=== PATIENT | female | born 1950 | race Caucasian/White ===

== ENCOUNTER → 2017-02-01 | Outpatient (CLI) | payer MEDICARE, BC ==
[~2017-02-01] MED LIST: ADALAT CC30 MG PO; AMARYL 2MG T2 MG/TAB PO; ASPIRIN 81M81 MG/TA2 PO; B-12 500 MCG; DIOVAN 160MG160 MG PO; FERROUS SULFATE65 MG PO; GLEEVEC100 MG PO; OMEGA-31 SGL PO; ZOCOR 10MG10 MG PO; ZOCOR 20MG20 MG PO
== END ==
LOC: COL.RAD 11:17
PROVIDERS: Internal Medicine Nephrology
DX: D41.01 Neoplasm of uncertain behavior of right kidney (principal); N28.1 Cyst of kidney, acquired; N28.89 Other specified disorders of kidney and ureter
CPT/HCPCS: A9585

== ENCOUNTER → 2017-02-13 | Outpatient (CLI) | payer MEDICARE, BC | LOC: COL.RAD 10:54 | DX: N28.89 Other specified disorders of kidney and ureter (principal) | CPT/HCPCS: A9562 ==

== ENCOUNTER 2017-03-26 08:25 | Inpatient (IN) | payer MEDICARE, BC ==
[~2017-03-26] VITALS: Ht 167.6 cm; Wt 76.8 kg
[2017-03-27] VITALS (9 sets, daily range): BP systolic 90–194; BP diastolic 40–76; PULSE 51–75; TEMP 97.4–97.9
[2017-03-27] MEDS ORDERED: FERROUS SULFATE65 MG PO (06:20)
[2017-03-27] MEDS ORDERED: ZOCOR 10MG10 MG PO (06:20)
[2017-03-27] MEDS ORDERED: B-12 500 MCG (06:20)
[2017-03-27] MEDS ORDERED: AMARYL 2MG T2 MG/TAB PO (06:21)
[2017-03-27] MEDS ORDERED: GLEEVEC100 MG PO (06:21)
[2017-03-27] MEDS ORDERED: OMEGA-31 SGL PO (06:22)
[2017-03-27] MEDS ORDERED: DIOVAN 160MG160 MG PO (06:23)
[2017-03-27] MEDS ORDERED: ADALAT CC30 MG PO (06:23)
[2017-03-27] MEDS ORDERED: ASPIRIN 81M81 MG/TA2 PO (06:23)
[2017-03-27 13:26] LABS: BASO # 0.1 (0.0-0.2); BASO % 0.4 % (0.0-2.0); EOS % 0.2 % (0-4.0); GRAN # 10.7 (1.4-6.5); GRAN % 85.8 % (42.2-75.2); MEAN CELL VOLUME 98 fl (80.0-100.0); MEAN CORPUSCULAR HGB CONC 32 g/dl (33.0-37.0); MEAN PLATELET VOLUME 10.6 fl (7.4-10.4); MONO # 0.7 (0.1-0.6); MONO % 5.3 % (1.7-9.3); PLATELET COUNT 188 K/mm3 (130-400); RED BLOOD COUNT 3.31 M/mm3 (4.10-5.30); REDCELL DISTRIBUTION WIDTH-CV 14.7 % (11.5-14.5); WHITE BLOOD COUNT 12.4 K/mm3 (4.8-10.8)
[2017-03-27 13:27] LABS: HEMATOCRIT 32.3 % (37.0-47.0); HEMOGLOBIN 10.2 g/dl (12.5-16.0); MEAN CORPUSCULAR HEMOGLOBIN 31 pg (27.0-31.0)
[2017-03-27 13:55] LABS: CALCIUM 8.1 mg/dL (8.4-10.2); CREATININE, serum 1.44 mg/dL (0.52-1.25); POTASSIUM 4.8 mmol/L (3.4-5.0)
[2017-03-28 01:37] VITALS: BP 142/50; PULSE 65; TEMP 98
[2017-03-28] MEDS ORDERED: ZOCOR 20MG20 MG PO (05:54)
[2017-03-28 06:10] VITALS: BP 158/59; PULSE 75; TEMP 98.1
[2017-03-28 08:17] LABS: BASO % 0.3 % (0.0-2.0); EOS # 0.2 (0.0-0.7); EOS % 2.2 % (0-4.0); GRAN # 9.1 (1.4-6.5); GRAN % 84.9 % (42.2-75.2); LYMPH # 0.6 (1.2-3.4); LYMPH % 5.8 % (20.0-51.0); MEAN CELL VOLUME 95 fl (80.0-100.0); MEAN CORPUSCULAR HGB CONC 33 g/dl (33.0-37.0); MEAN PLATELET VOLUME 10.9 fl (7.4-10.4); MONO # 0.7 (0.1-0.6); MONO % 6.4 % (1.7-9.3); PLATELET COUNT 184 K/mm3 (130-400); RED BLOOD COUNT 3.47 M/mm3 (4.10-5.30); REDCELL DISTRIBUTION WIDTH-CV 14.6 % (11.5-14.5); WHITE BLOOD COUNT 10.7 K/mm3 (4.8-10.8)
[2017-03-28 08:24] LABS: HEMATOCRIT 33.1 % (37.0-47.0); HEMOGLOBIN 10.8 g/dl (12.5-16.0); MEAN CORPUSCULAR HEMOGLOBIN 31 pg (27.0-31.0)
[2017-03-28 08:45] LABS: CALCIUM 8.3 mg/dL (8.4-10.2); CREATININE, serum 1.31 mg/dL (0.52-1.25); POTASSIUM 4.3 mmol/L (3.4-5.0)
[2017-03-28 11:40] VITALS: BP 145/57; PULSE 74; TEMP 98.4
[2017-03-28 13:45] VITALS: BP 146/77; PULSE 76; TEMP 98.4
[2017-03-28 17:25] VITALS: BP 135/55; PULSE 76; TEMP 98.7
[2017-03-28 22:01] VITALS: BP 156/54; PULSE 80; TEMP 99.3
[2017-03-29 01:35] VITALS: BP 141/52; PULSE 76; TEMP 98.4
[2017-03-29 05:25] VITALS: BP 126/56; PULSE 72; TEMP 97.2
[2017-03-29 07:10] LABS: MEAN CELL VOLUME 95 fl (80.0-100.0); MEAN CORPUSCULAR HGB CONC 33 g/dl (33.0-37.0); MEAN PLATELET VOLUME 10.7 fl (7.4-10.4); PLATELET COUNT 161 K/mm3 (130-400); RED BLOOD COUNT 3.06 M/mm3 (4.10-5.30); REDCELL DISTRIBUTION WIDTH-CV 14.6 % (11.5-14.5); WHITE BLOOD COUNT 10.2 K/mm3 (4.8-10.8)
[2017-03-29 07:19] LABS: HEMOGLOBIN 9.6 g/dl (12.5-16.0); MEAN CORPUSCULAR HEMOGLOBIN 31 pg (27.0-31.0)
[2017-03-29 07:23] LABS: CALCIUM 8.4 mg/dL (8.4-10.2); CREATININE, serum 1.26 mg/dL (0.52-1.25); POTASSIUM 4.3 mmol/L (3.4-5.0)
[2017-03-29 10:06] VITALS: BP 144/59; PULSE 72; TEMP 98.1
[2017-03-29 13:58] VITALS: BP 131/53; PULSE 79; TEMP 98.2
[2017-03-29 17:26] VITALS: BP 153/58; PULSE 78; TEMP 98.2
[2017-03-29 22:00] VITALS: BP 146/56; PULSE 83; TEMP 98.3
[2017-03-30 02:00] VITALS: BP 120/59; PULSE 76; TEMP 98
[2017-03-30 05:20] VITALS: BP 125/58; PULSE 78; TEMP 98.1
[2017-03-30 09:13] VITALS: BP 142/51; PULSE 73; TEMP 98.1
[2017-03-30 14:16] VITALS: BP 126/54; PULSE 79; TEMP 99
[2017-03-30 17:23] VITALS: BP 129/55; PULSE 81; TEMP 98.6
[2017-03-30 22:01] VITALS: BP 132/60; PULSE 86; TEMP 97.9
[2017-03-31 01:56] VITALS: BP 132/51; PULSE 71; TEMP 97.4
[2017-03-31 06:23] VITALS: BP 116/51; PULSE 74; TEMP 97.4
[2017-03-31 09:57] VITALS: BP 123/48; PULSE 76; TEMP 98.7
[2017-03-31 14:30] VITALS: BP 132/47; PULSE 72; TEMP 98.2
[2017-03-31 17:47] VITALS: BP 120/52; PULSE 74; TEMP 98.2
[2017-03-31 22:16] VITALS: BP 128/51; PULSE 75; TEMP 97.8
[2017-04-01 01:41] VITALS: BP 114/54; PULSE 67; TEMP 97.4
[2017-04-01 05:47] VITALS: BP 114/50; PULSE 70; TEMP 97.6
[2017-04-01 10:30] VITALS: BP 119/46; PULSE 74; TEMP 97.9
== END 2017-04-01 13:54 | disposition home or self-care (01) | DRG 657 ==
LOC: COL.LAB 08:25 → INPTSU 03-27 06:00 → SURG 03-27 06:00
PROVIDERS: Urology
PROC: 8E0W4CZ Robotic Assisted Procedure of Trunk Region, Percutaneous Endoscopic Approach (ICD-10-PCS; 2017-03-27)
PROC: 0TB04ZZ Excision of Right Kidney, Percutaneous Endoscopic Approach (ICD-10-PCS; principal; 2017-03-27 07:30)
DX: C64.1 Malignant neoplasm of right kidney, except renal pelvis (principal); C92.10 Chronic myeloid leukemia, BCR/ABL-positive, not having achieved remission; K91.3 Postprocedural intestinal obstruction; Z85.038 Personal history of other malignant neoplasm of large intestine; Z85.42 Personal history of malignant neoplasm of other parts of uterus; I12.9 Hypertensive chronic kidney disease with stage 1 through stage 4 chronic kidney disease, or unspecified chronic kidney disease; E11.22 Type 2 diabetes mellitus with diabetic chronic kidney disease; N18.9 Chronic kidney disease, unspecified; Z93.3 Colostomy status
CPT/HCPCS: 99222; 99232-AI; A4315; A9284; J1644; J2270; J2405; J2704; J2710; J3010; J7030; J7042

== ENCOUNTER → 2017-03-27 | Outpatient (CLI) | payer MEDICARE, BC ==
[2017-03-27 11:10] VITALS: TEMP 97.2
[2017-03-27 11:35] VITALS: BP 95/50; PULSE 54
== END ==
LOC: SURG 05:45 → INPTSU 05:45 → EDSTATUS 07:30 → SURG 07:30 → EUO 09:00
DX: Z02.89 Encounter for other administrative examinations (principal)
CPT/HCPCS: A4315; J1170; J2270

== ENCOUNTER 2017-07-22 14:07 | Inpatient (IN) | payer MEDICARE, BC ==
[~2017-07-22] VITALS: Ht 167.6 cm; Wt 74.4 kg
[2017-07-22 14:38] VITALS: BP 160/56; PULSE 70; TEMP 98.1
[2017-07-22 17:53] LABS: BASO # 0.1 (0.0-0.2); BASO % 0.7 % (0.0-2.0); EOS # 0.2 (0.0-0.7); EOS % 1.8 % (0-4.0); GRAN # 7.7 (1.4-6.5); GRAN % 75.5 % (42.2-75.2); LYMPH # 1.6 (1.2-3.4); LYMPH % 15.6 % (20.0-51.0); MEAN CELL VOLUME 93 fl (80.0-100.0); MEAN CORPUSCULAR HGB CONC 34 g/dl (33.0-37.0); MEAN PLATELET VOLUME 10.6 fl (7.4-10.4); MONO # 0.6 (0.1-0.6); MONO % 6.2 % (1.7-9.3); PLATELET COUNT 228 K/mm3 (130-400); RED BLOOD COUNT 3.75 M/mm3 (4.10-5.30); REDCELL DISTRIBUTION WIDTH-CV 13.8 % (11.5-14.5); WHITE BLOOD COUNT 10.2 K/mm3 (4.8-10.8)
[2017-07-22 17:54] LABS: HEMOGLOBIN 11.8 g/dl (12.5-16.0); MEAN CORPUSCULAR HEMOGLOBIN 31 pg (27.0-31.0)
[2017-07-22 18:02] LABS: ADJUSTED CALCIUM 9.5 mg/dL (8.4-10.2); ALBUMIN 4.6 gm/dL (3.5-5.0); BILIRUBIN,TOTAL 0.5 mg/dL (0.0-1.0); CREATININE, serum 1.27 mg/dL (0.52-1.25); POTASSIUM 4.7 mmol/L (3.4-5.0); TOTAL PROTEIN 7.3 gm/dL (6.4-8.2)
[2017-07-22 19:25] VITALS: BP 136/57; PULSE 64; TEMP 97.7
[2017-07-22 20:00] VITALS: BP 141/57; PULSE 62; TEMP 97.2
[2017-07-23] VITALS (11 sets, daily range): BP systolic 113–160; BP diastolic 53–69; PULSE 55–77; TEMP 97.9–98.7
[2017-07-23 08:31] LABS: BASO # 0.1 (0.0-0.2); BASO % 0.6 % (0.0-2.0); EOS # 0.1 (0.0-0.7); EOS % 1.6 % (0-4.0); GRAN # 6.4 (1.4-6.5); GRAN % 76.3 % (42.2-75.2); LYMPH # 1.2 (1.2-3.4); LYMPH % 13.9 % (20.0-51.0); MEAN CELL VOLUME 95 fl (80.0-100.0); MEAN CORPUSCULAR HGB CONC 33 g/dl (33.0-37.0); MEAN PLATELET VOLUME 10.7 fl (7.4-10.4); MONO # 0.6 (0.1-0.6); MONO % 7.2 % (1.7-9.3); PLATELET COUNT 216 K/mm3 (130-400); RED BLOOD COUNT 3.51 M/mm3 (4.10-5.30); WHITE BLOOD COUNT 8.4 K/mm3 (4.8-10.8)
[2017-07-23 08:41] LABS: HEMATOCRIT 33.5 % (37.0-47.0); HEMOGLOBIN 11.1 g/dl (12.5-16.0); MEAN CORPUSCULAR HEMOGLOBIN 32 pg (27.0-31.0)
[2017-07-23 08:44] LABS: ADJUSTED CALCIUM 9.4 mg/dL (8.4-10.2); BILIRUBIN,TOTAL 0.6 mg/dL (0.0-1.0); CALCIUM 9.4 mg/dL (8.4-10.2); CREATININE, serum 1.37 mg/dL (0.52-1.25); POTASSIUM 4.7 mmol/L (3.4-5.0); TOTAL PROTEIN 6.4 gm/dL (6.4-8.2)
[2017-07-24] VITALS (8 sets, daily range): BP systolic 148–185; BP diastolic 54–62; PULSE 63–82; TEMP 97.7–99.2
[2017-07-24 05:38] LABS: BASO % 0.2 % (0.0-2.0); GRAN # 10.5 (1.4-6.5); GRAN % 87.2 % (42.2-75.2); LYMPH # 0.8 (1.2-3.4); LYMPH % 6.5 % (20.0-51.0); MEAN CELL VOLUME 98 fl (80.0-100.0); MEAN CORPUSCULAR HGB CONC 32 g/dl (33.0-37.0); MEAN PLATELET VOLUME 11.1 fl (7.4-10.4); MONO # 0.7 (0.1-0.6); MONO % 5.9 % (1.7-9.3); PLATELET COUNT 190 K/mm3 (130-400)
[2017-07-24 05:43] LABS: HEMATOCRIT 33.2 % (37.0-47.0); HEMOGLOBIN 10.6 g/dl (12.5-16.0); MEAN CORPUSCULAR HEMOGLOBIN 31 pg (27.0-31.0)
[2017-07-24 05:48] LABS: CALCIUM 8.6 mg/dL (8.4-10.2); CREATININE, serum 1.35 mg/dL (0.52-1.25); POTASSIUM 4.3 mmol/L (3.4-5.0)
[2017-07-25 05:28] VITALS: BP 140/60; PULSE 68; TEMP 98
[2017-07-25 09:28] VITALS: BP 170/70; PULSE 71; TEMP 97.7
[2017-07-25 13:57] VITALS: BP 128/74; PULSE 84
[2017-07-25 17:49] VITALS: BP 164/7; BP 164/75; PULSE 82; TEMP 98.2
[2017-07-25 22:09] VITALS: BP 157/60; PULSE 81; TEMP 98.4
[2017-07-26 06:40] VITALS: BP 165/75; PULSE 77; TEMP 98.3
[2017-07-26 09:18] VITALS: BP 172/71; PULSE 77; TEMP 98.3
[2017-07-26 13:37] VITALS: BP 165/68; PULSE 80; TEMP 98.6
[2017-07-26 17:52] VITALS: BP 156/67; PULSE 84; TEMP 97.5
[2017-07-26 21:53] VITALS: BP 150/62; PULSE 82; TEMP 97
[2017-07-27 05:18] VITALS: BP 147/62; PULSE 74; TEMP 98.1
[2017-07-27 08:27] VITALS: BP 136/72; PULSE 68; TEMP 98.1
[2017-07-27 13:30] VITALS: BP 157/73; PULSE 80; TEMP 98.7
[2017-07-27 17:33] VITALS: BP 146/71; PULSE 78; TEMP 99.3
[2017-07-27 22:23] VITALS: BP 151/65; PULSE 77; TEMP 99.3
[2017-07-28 02:00] VITALS: BP 149/68; PULSE 77; TEMP 99.1
[2017-07-28 05:20] VITALS: BP 152/66; PULSE 65; TEMP 98.7
[2017-07-28 09:35] VITALS: BP 141/60; PULSE 69; TEMP 98.5
== END 2017-07-28 10:00 | disposition home or self-care (01) | DRG 336 ==
LOC: SURG 14:07
PROVIDERS: Surgery
PROC: 0WUF4JZ Supplement Abdominal Wall with Synthetic Substitute, Percutaneous Endoscopic Approach (ICD-10-PCS; principal; 2017-07-23 15:00)
PROC: 0DNS4ZZ (ICD-10-PCS; 2017-07-23 15:00)
PROC: 8E0W4CZ Robotic Assisted Procedure of Trunk Region, Percutaneous Endoscopic Approach (ICD-10-PCS; 2017-07-23 15:00)
DX: K43.3 Parastomal hernia with obstruction, without gangrene (principal); C92.10 Chronic myeloid leukemia, BCR/ABL-positive, not having achieved remission; Z85.42 Personal history of malignant neoplasm of other parts of uterus; Z85.528 Personal history of other malignant neoplasm of kidney; Z85.038 Personal history of other malignant neoplasm of large intestine; E11.9 Type 2 diabetes mellitus without complications; I10 Essential (primary) hypertension
CPT/HCPCS: A4315; C1713; C1781; J0690; J1100; J1170; J1650; J1815; J2250; J2370; J2405; J2704; J2710; J3010; J7030; J7042; J7050

== ENCOUNTER → 2017-10-10 | Outpatient (CLI) | payer MEDICARE, BC | LOC: COL.RAD 12:05 | DX: N28.1 Cyst of kidney, acquired (principal) ==

== ENCOUNTER → 2018-04-09 | Outpatient (CLI) | payer MEDICARE, BC | LOC: COL.RAD 10:03 | DX: Z85.520 Personal history of malignant carcinoid tumor of kidney (principal); Z98.890 Other specified postprocedural states ==

== ENCOUNTER 2019-01-07 20:01 | Inpatient (IN) | payer MEDICARE, BC ==
[~2019-01-07] VITALS: Ht 165.1 cm; Wt 76.7 kg
[2019-01-07 20:54] LABS: BASO # 0.1 (0.0-0.2); BASO % 0.6 % (0.0-2.0); EOS # 0.1 (0.0-0.7); EOS % 0.9 % (0-4.0); GRAN # 10.6 (1.4-6.5); GRAN % 82.4 % (42.2-75.2); HEMATOCRIT 40.6 % (37.0-47.0); HEMOGLOBIN 13.6 g/dl (12.5-16.0); LYMPH # 1.5 (1.2-3.4); LYMPH % 11.4 % (20.0-51.0); MEAN CELL VOLUME 95 fl (80.0-100.0); MEAN CORPUSCULAR HEMOGLOBIN 32 pg (27.0-31.0); MEAN CORPUSCULAR HGB CONC 34 g/dl (33.0-37.0); MEAN PLATELET VOLUME 10.3 fl (7.4-10.4); MONO # 0.5 (0.1-0.6); MONO % 4.2 % (1.7-9.3); PLATELET COUNT 277 K/mm3 (130-400); RED BLOOD COUNT 4.29 M/mm3 (4.10-5.30); REDCELL DISTRIBUTION WIDTH-CV 13.9 % (11.5-14.5)
[2019-01-07 21:09] LABS: ALBUMIN 4.8 gm/dL (3.5-5.0); BILIRUBIN,TOTAL 0.4 mg/dL (0.0-1.0); CALCIUM 10.5 mg/dL (8.4-10.2); CREATININE, serum 1.25 mg/dL (0.52-1.25); POTASSIUM 4.6 mmol/L (3.4-5.0); TOTAL PROTEIN 8.3 gm/dL (6.4-8.2)
[2019-01-07] MEDS ORDERED: VITAMIN D 400400 IU PO (21:18)
[2019-01-07] MEDS ORDERED: [UNRECOGNIZED DRUG - REMARK] (21:22)
[2019-01-07] MEDS ORDERED: HCTZ12.5TAB PO (21:23)
[2019-01-07] MEDS ORDERED: AVAPRO300 M1 PO (21:24)
[2019-01-07 22:40] LABS: COLLECTION METHOD CLEAN CATCH
[2019-01-07 22:45] LABS: MUCOUS Present /lpf; PH 6 (5-8); SQUAMOUS EPITHELIAL None Seen /hpf; URINE APPEARANCE Clear; URINE BACTERIA None Seen /hpf; URINE BILIRUBIN Negative (NEGATIVE); URINE BLOOD 1+ (NEGATIVE); URINE COLOR Straw; URINE GLUCOSE 2+ (NEGATIVE); URINE KETONE Negative (NEGATIVE); URINE LEUKOCYTE ESTERASE Negative (NEGATIVE); URINE NITRATE Negative (NEGATIVE); URINE PROTEIN(semi-quant) 2+ (NEGATIVE); URINE UROBILINOGEN Negative (NEGATIVE)
--- NOTE | 2019-01-07 23:09 | NUR ---
Pt arrived from ER via stretcher. Ambulated from stretcher to bed without difficulty. No distress noted. Daughter at bedside.
--- NOTE | 2019-01-07 23:23 | NUR ---
Dr. Morales called for orders and alert about patients blood pressure of 206/71. Orders received to restart orders he submitted in ER. Orders for Labetolol x1.
--- NOTE | 2019-01-07 23:40 | NUR ---
Pt resting. No distress noted. IV Labetolol and PRN pain medication administered. IVF infusing to R AC. Respirations even and unloabored. Lungs clear. BS are positive x4. LLQ ostomy- no output noted. LLQ firm to touch. No edema noted. Will continue to monitor.
[2019-01-08] VITALS (13 sets, daily range): BP systolic 133–206; BP diastolic 55–79; PULSE 59–99; TEMP 97.7–99
--- NOTE | 2019-01-08 00:55 | NUR ---
Dr. Morales made aware of patients elevated blood pressure despite Labetolol administration. No orders received.
--- NOTE | 2019-01-08 01:15 | NUR ---
Pt ambulated to bathroom with stand by assist. Gait steady. No difficulty. Voided clear yellow urine.
--- NOTE | 2019-01-08 06:15 | NUR ---
Pt has slept throughout the night. Pain well controlled by PRN medication. Pt had one episode of nausea, but it was relieved by Zofran.
[2019-01-08 07:28] LABS: HEMOGLOBIN 12.3 g/dl (12.5-16.0); MEAN CELL VOLUME 96 fl (80.0-100.0); MEAN CORPUSCULAR HEMOGLOBIN 32 pg (27.0-31.0); MEAN CORPUSCULAR HGB CONC 33 g/dl (33.0-37.0); MEAN PLATELET VOLUME 10.5 fl (7.4-10.4); PLATELET COUNT 275 K/mm3 (130-400); RED BLOOD COUNT 3.86 M/mm3 (4.10-5.30); REDCELL DISTRIBUTION WIDTH-CV 14.1 % (11.5-14.5)
[2019-01-08 07:33] LABS: CALCIUM 9.7 mg/dL (8.4-10.2); CREATININE, serum 1.13 mg/dL (0.52-1.25); POTASSIUM 4.4 mmol/L (3.4-5.0)
[2019-01-08 07:44] LABS: HEMATOCRIT 36.9 % (37.0-47.0)
[2019-01-08 08:41] LABS: BAND 6 % (0-10); LYMPHOCYTE 14 % (20.0-51.0); NEUTROPHILS 78 % (42.0-75.2); PLATELET ESTIMATE NORMAL (NORMAL)
--- NOTE | 2019-01-08 10:21 | NUR ---
Initial visit; Patient thanked [employer] for looking in on her and offering encouragement and prayer.
--- NOTE | 2019-01-08 11:09 | NUR ---
SW met with patient about discharge plans. At this time, discharge plan is to return home. Patient lives independently at home with her . Patient's PCP is Dr Lechuga and she obtains prescriptions from [facility]. Patient does not use any DME or home health services. Patient reports she has DPOA but it is not in EMR. SW does not anticipate any needs upon discharge.
--- NOTE | 2019-01-08 11:30 | NUR ---
Placed an NG tube at this time. Patient did ok with placement but she is not tolerating having the NG in her nose. She did not want an NG tube. She stated her nausea is better. Still having pain to her colostomy site. No other changes at this time. Call light within reach.
--- NOTE | 2019-01-08 16:30 | NUR ---
Patient is going to surgery. Consent signed and on the chart. She should be leaving the floor soon. Family with patient. No other changes at this time. Call light within reach.
--- NOTE | 2019-01-08 22:29 | NUR ---
PT RETURNED FROM SURGERY AND IS A/O X4, FAMILY WAS IN ROOM WAITING. PT HAS C/O PAIN IN LEFT LEG, CRAMPING AND RATED AT A 5/10, DILUADID GIVEN FOR PAIN. PT IS AWARE THAT SHE IS NPO AT THIS TIME. PT RESTING IN BED WITH HOB ELEVATED TO 45 DEGREE ANGLE. PT HAS NO NEEDS AT THIS TIME, CALL LIGHT WITHIN REACH. PT HAS X4 LAP SITES THAT ARE GLUED AND ON LEFT SIDE OF ABDOMEN HAS DRSG WITH NEVA DRAIN WITH BULB SUCTION THAT HAS BLOODY DRAINAGE AT THIS TIME. NO S/S OF INFECTION NOTED.
--- NOTE | 2019-01-08 22:41 | NUR ---
PT FELL ASLEEP AND O2 WENT DOWN TO 89% ON RA. O2 PLACED ON PT AT 1L/NC.
[2019-01-09 00:32] VITALS: BP 131/53; PULSE 61; TEMP 98.7
[2019-01-09 00:40] VITALS: BP 136/55; PULSE 65; TEMP 98.6
[2019-01-09 01:39] VITALS: BP 150/58; PULSE 74; TEMP 98.4
--- NOTE | 2019-01-09 02:07 | NUR ---
Pt in bed with HOB at 45 degree angle. PT has been sleep/resting with o2 1L/NC. Pt has no drainage from colostomy bag. Pt has red bloody drainage from NEVA bulb. Pt denies pain or discomfort at this time. Also, no needs at this time as well, call light within reach.
[2019-01-09 03:26] VITALS: BP 133/57; PULSE 75; TEMP 99.5
[2019-01-10 13:57] LABS: CALCIUM 8.2 mg/dL (8.4-10.2); CREATININE, serum 1.48 mg/dL (0.52-1.25); POTASSIUM 4.2 mmol/L (3.4-5.0)
--- NOTE | 2019-01-10 15:46 | NUR ---
Pt has had some output from the new colostomy, liquid and brown, belly is less distended than this morning. Pt up ambulating every few hours with walker, steady gait. Resting in chair and bed alternating for comfort. Toleratng full liquid diet well. Denies needs, will continue to monitor.
[2019-01-10 17:04] VITALS: BP 134/57; PULSE 78; TEMP 98.2
--- NOTE | 2019-01-10 17:22 | NUR ---
Pt doing well. Dr. Morales called for updated and passed along that patient has had output from her colostomy site that is dark green and liquid. Pt tolerating PO well, denies pain. Resting in chair at side of bed, has had several visitors today. Minimal SS output from NEVA site. Drain site remains CDI. Denies needs, will give bedside shift report to nightshift nurse who will resume care.
--- NOTE | 2019-01-10 21:00 | NUR ---
Patient up ambulating in her room, steady gait with walker. Offers no complaints of pain. Has ENVA drain with bloody drainage, to bulb suction. Has Colostomy with dark liquid drainage. Has SL to right AC without redness or swelling. Voiding yellow urine.
[2019-01-11] VITALS (7 sets, daily range): BP systolic 114–134; BP diastolic 40–59; PULSE 67–80; TEMP 97.4–99.2
--- NOTE | 2019-01-11 01:30 | NUR ---
Patient awake, restless. Tylenol 650mg po given for general discomfort.
--- NOTE | 2019-01-11 05:00 | NUR ---
Patient awake, up in chair at bedside. Was assisted with complete ostomy bag change by Matt VARELA. Given cranberry juice as requested.
[2019-01-11 06:18] LABS: BASO % 0.3 % (0.0-2.0); EOS # 0.4 (0.0-0.7); EOS % 4.6 % (0-4.0); GRAN # 5.1 (1.4-6.5); GRAN % 67.1 % (42.2-75.2); LYMPH # 1.4 (1.2-3.4); LYMPH % 18.7 % (20.0-51.0); MEAN CELL VOLUME 96 fl (80.0-100.0); MEAN CORPUSCULAR HGB CONC 34 g/dl (33.0-37.0); MEAN PLATELET VOLUME 10.3 fl (7.4-10.4); MONO # 0.7 (0.1-0.6); MONO % 8.9 % (1.7-9.3); PLATELET COUNT 189 K/mm3 (130-400); RED BLOOD COUNT 2.77 M/mm3 (4.10-5.30); REDCELL DISTRIBUTION WIDTH-CV 13.4 % (11.5-14.5)
[2019-01-11 06:21] LABS: HEMATOCRIT 26.6 % (37.0-47.0); HEMOGLOBIN 8.9 g/dl (12.5-16.0); MEAN CORPUSCULAR HEMOGLOBIN 32 pg (27.0-31.0)
[2019-01-11 06:34] LABS: ALBUMIN 2.9 gm/dL (3.5-5.0); BILIRUBIN,TOTAL 0.2 mg/dL (0.0-1.0); CALCIUM 7.9 mg/dL (8.4-10.2); CREATININE, serum 1.41 mg/dL (0.52-1.25); POTASSIUM 3.5 mmol/L (3.4-5.0); TOTAL PROTEIN 5.5 gm/dL (6.4-8.2)
--- NOTE | 2019-01-11 22:00 | NUR ---
Patient ambulating in hallway with walker, gait steady. Offers no concerns. Ostomy bag intact, has been emptying on own without measuring. NEVA to bulb suction. SL to right AC intact.
--- NOTE | 2019-01-12 05:26 | NUR ---
Up ambulating in hallway. Had 5cc from this shift. Emptying own colostomy bag. No concerns voiced at this time.
[2019-01-12 07:35] VITALS: BP 130/59; PULSE 66; TEMP 98.7
[2019-01-12 07:53] LABS: HEMOGLOBIN 8.7 g/dl (12.5-16.0)
--- NOTE | 2019-01-12 08:00 | NUR ---
Patient resting in bedside recliner watching television at this time. Patient is alert and oriented, answers questions appropriately. 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 New colostomy site with appliance intact, stoma appears healthy and dark pink, no skin irritation noted around appliance. NEVA drain to left abodmen intact, small amount of dark pink drainage noted in drain bulb. Patient denies pain at this time, has finished her breakfast and denies nausea. Patient denies further needs, call light within reach.
[2019-01-12 11:44] VITALS: BP 125/54; PULSE 70; TEMP 97.8
[2019-01-12 16:05] VITALS: BP 144/50; PULSE 70; TEMP 98
--- NOTE | 2019-01-12 18:10 | NUR ---
Patient currently resting in bedside chair. Patient has been walking in shea independently with walker periodically during the day, no complaints of pain or nausea. Ostomy continues to have good output, patient is managing care well. Patient denies further needs at this time, call light within reach.
[2019-01-12 20:25] VITALS: BP 135/54; PULSE 76; TEMP 98.6
--- NOTE | 2019-01-12 21:00 | NUR ---
Patient up in chair at bedside, watches TV. Takes HS med without problem. Has no IV site. NEVA with 10cc serosanguinous drainage emptied now and placed back to bulb suction. NEVA insertion site without dressing, sutures intact. Colostomy to left lower abdomen with semi liquid brown stool, patient is emptying on her own. Offers no concerns at this time.
[2019-01-12 23:33] VITALS: BP 135/57; PULSE 72; TEMP 98
[2019-01-13 03:14] VITALS: BP 124/57; PULSE 69; TEMP 98.3
--- NOTE | 2019-01-13 03:30 | NUR ---
Patient reports leaking colostomy bag. New wafer and appliance bag applied after removal of old and cleansing area well. Patient prefers to sit in chair at this time.
[2019-01-13 08:39] VITALS: BP 124/49; PULSE 68; TEMP 98
--- NOTE | 2019-01-13 09:28 | NUR ---
FANNY informed that patient is discharging home today. FANNY presented IM to patient. She signed but did not request a copy.
--- NOTE | 2019-01-13 09:30 | NUR ---
Patient is discharging home. Denies pain. NEVA drain discontinued. Patient tolerated well. Placed gauze and tegaderm to drain site. There was not drainage from the site. No IV to discontinue. Discharge instructions discussed with patient. No questions verbalized. She has an appointment scheduled but she wanted to change it. She is going to call, so she can get a time that works for her. Copies of discharge instructions sent with patient. All belongings packed up and sent with patient. Patient walked out by Steffanie VARELA.
== END 2019-01-13 09:35 | disposition home or self-care (01) | DRG 331 ==
LOC: COL.ER 20:01 → SURG 22:30
PROVIDERS: Emergency Medicine; Hospitalist; ADMIT Surgery
PROC: 0DNU4ZZ Release Omentum, Percutaneous Endoscopic Approach (ICD-10-PCS; principal; 2019-01-08 16:30)
PROC: 0D1M0Z4 Bypass Descending Colon to Cutaneous, Open Approach (ICD-10-PCS; principal; 2019-01-08 16:30)
PROC: 0WJF4ZZ Inspection of Abdominal Wall, Percutaneous Endoscopic Approach (ICD-10-PCS; principal; 2019-01-08 16:30)
PROC: 0WUF0JZ Supplement Abdominal Wall with Synthetic Substitute, Open Approach (ICD-10-PCS; principal; 2019-01-08 16:30)
PROC: 8E0W4CZ Robotic Assisted Procedure of Trunk Region, Percutaneous Endoscopic Approach (ICD-10-PCS; principal; 2019-01-08 16:30)
DX: K43.3 Parastomal hernia with obstruction, without gangrene (principal); Y83.2 Surgical operation with anastomosis, bypass or graft as the cause of abnormal reaction of the patient, or of later complication, without mention of misadventure at the time of the procedure; Y73.3 Surgical instruments, materials and gastroenterology and urology devices (including sutures) associated with adverse incidents; Y92.89 Other specified places as the place of occurrence of the external cause; K66.0 Peritoneal adhesions (postprocedural) (postinfection); Z88.0 Allergy status to penicillin; Z53.31 Laparoscopic surgical procedure converted to open procedure
CPT/HCPCS: A4314; C1781; J0690; J1170; J1650; J1940; J2250; J2405; J2704; J2710; J3010; J7120; Q9967

== ENCOUNTER → 2019-05-16 | Outpatient (CLI) | payer MEDICARE, BC ==
[~2019-05-16] MED LIST changes: +AVAPRO300 M1 PO; +HCTZ12.5TAB PO; +VITAMIN D 400400 IU PO; +[UNRECOGNIZED DRUG - REMARK]
== END ==
LOC: COL.RAD 09:15
DX: N27.0 Small kidney, unilateral (principal); N28.1 Cyst of kidney, acquired; Z90.5 Acquired absence of kidney; Z85.528 Personal history of other malignant neoplasm of kidney

== ENCOUNTER 2019-06-11 20:22 | Observation (INO) | payer MEDICARE, BC ==
[~2019-06-11] VITALS: Ht 167.6 cm; Wt 78.6 kg
[2019-06-11] MEDS ORDERED: AMARYL 2MG T2 MG/TAB PO (21:16)
[2019-06-11] MEDS ORDERED: COZAAR100 MG PO (21:18)
[2019-06-11 21:34] LABS: BASO # 0.1 (0.0-0.2); BASO % 0.5 % (0.0-2.0); EOS # 0.1 (0.0-0.7); EOS % 0.6 % (0-4.0); GRAN # 11.7 (1.4-6.5); GRAN % 83.7 % (42.2-75.2); HEMOGLOBIN 11.1 g/dl (12.5-16.0); LYMPH % 6.8 % (20.0-51.0); MEAN CELL VOLUME 93 fl (80.0-100.0); MEAN CORPUSCULAR HEMOGLOBIN 32 pg (27.0-31.0); MEAN CORPUSCULAR HGB CONC 34 g/dl (33.0-37.0); MEAN PLATELET VOLUME 9.7 fl (7.4-10.4); MONO # 1.1 (0.1-0.6); MONO % 7.9 % (1.7-9.3); PLATELET COUNT 338 K/mm3 (130-400); RED BLOOD COUNT 3.49 M/mm3 (4.10-5.30); REDCELL DISTRIBUTION WIDTH-CV 12.9 % (11.5-14.5)
[2019-06-11 21:43] LABS: ALANINE AMINOTRANSFERASE < 6 U/L (9-52); ALBUMIN 4.6 gm/dL (3.5-5.0); ALKALINE PHOSPHATASE 50 U/L (50-136); ANION GAP 13 mmol/L (7-16); AST,SGOT 23 U/L (15-37); BILIRUBIN,TOTAL 0.4 mg/dL (0.0-1.0); BLOOD UREA NITROGEN 41 mg/dL (7-17); CALCIUM 9.7 mg/dL (8.4-10.2); CARBON DIOXIDE 19 mmol/L (22-30); CHLORIDE 99 mmol/L (98-107); CREATININE, serum 1.78 (0.52-1.25); GLUCOSE 175 mg/dL (74-106); LIPASE 1045 U/L (23-300); SODIUM 132 mmol/L (137-145); TOTAL PROTEIN 7.2 gm/dL (6.4-8.2)
[2019-06-11 21:44] LABS: HEMATOCRIT 32.5 % (37.0-47.0)
[2019-06-11 23:53] VITALS: BP 118/65; PULSE 91; TEMP 98.2
[2019-06-12 03:17] VITALS: BP 133/69; PULSE 85; TEMP 97.8
--- NOTE | 2019-06-12 06:09 | NUR ---
Patient arrived to floor from ED via wheel chair at approximately 2340. Patient is alert and oriented, answers questions appropriately. Patient states that she had a bowel movement while she was in the ED and reports that she feels better, however her abdomen is still sore and while she is not nauseous, she does not currently have an appetite. IVF infusing to peripherial in right hand per order. Patient has not requested pain medication. Denies needs at this time, call light within reach.
[2019-06-12 07:38] VITALS: BP 133/63; PULSE 63; TEMP 97.9
--- NOTE | 2019-06-12 09:30 | NUR ---
Patient alert and oriented, answers questions appropriately. See assessment. No c/o abdominal pain or discomfort. +Flatus. Liquid stool in ostomy. No other c/o at this time.
[2019-06-12 09:56] LABS: CALCIUM 8.6 mg/dL (8.4-10.2); CREATININE, serum 1.55 (0.52-1.25); POTASSIUM 4.6 mmol/L (3.4-5.0)
[2019-06-12 11:19] VITALS: BP 126/61; PULSE 60; TEMP 98.7
--- NOTE | 2019-06-12 12:18 | NUR ---
Initial visit; Patient thanked Mica Layer for looking in on her and offering God's blessings. Luisa states he Monotype Caster knows she's here and has lots of prayers being said for her.
--- NOTE | 2019-06-12 14:52 | NUR ---
SW attempted to meet with patient to discuss discharge planning. Patient reported she does not need anything and that she is going home today. SW spoke with patient's nurse about this. She reports that patient is independent and does not require any discharge needs.
--- NOTE | 2019-06-12 15:11 | NUR ---
Discharge instructions reviewed with patient, verbalized understanding. Discharged via wheelchair to auto/home with family at 1505.
== END 2019-06-12 15:05 | disposition home or self-care (01) ==
LOC: COL.ER 20:22 → SURG 22:47
PROVIDERS: Emergency Medicine; ADMIT Surgery
DX: K56.609 Unspecified intestinal obstruction, unspecified as to partial versus complete obstruction (principal); Z90.710 Acquired absence of both cervix and uterus; Z90.49 Acquired absence of other specified parts of digestive tract; Z90.5 Acquired absence of kidney; Z93.3 Colostomy status; Z79.84 Long term (current) use of oral hypoglycemic drugs; Z88.0 Allergy status to penicillin
CPT/HCPCS: G0378; J2060; J2405; J7030; J7120

== ENCOUNTER 2019-06-27 15:53 | Inpatient (IN) | payer MEDICARE, BC ==
[2019-06-27] VITALS (403 sets, daily range): BP systolic 110–136; BP diastolic 62–92; PULSE 59–66; TEMP 98–98.3; O2SAT 93–100
[~2019-06-27] VITALS: Ht 167.6 cm; Wt 77.2 kg
[~2019-06-27 15:53] MED LIST changes: +COZAAR100 MG PO
[2019-06-27] MEDS ORDERED: TOPROL XL 50MG50 MG PO (16:44)
[2019-06-27] MEDS ORDERED: ASPIRIN E.C. 8181 MG PO (16:45)
[2019-06-27] MEDS ORDERED: FERRO-TIME325 MG PO (16:46)
[2019-06-27] MEDS ORDERED: MASON NATURAL2000 IU PO (16:47)
[2019-06-27] MEDS ORDERED: VIT B12 PO (16:48)
--- NOTE | 2019-06-27 17:45 | NUR ---
Patient report received from AVERY Jacques who admitted the patient into ICU. Full patient assessment completed. Patient is calm and alert in bed and states "I just really don't feel good" and visibly shakey. Patient has clear lung sounds throughout, S1 and S2 auscultated. Vital signs are stable. Bowel sounds audible in all quadrants, colostomy noted to LLQ. Stoma pink and moist. Patient states she prefers to use her personal ostomy bags during hospital visit. Radial and pedal pulses 2+. Patient is fully alert and oriented. Call light and personal items placed within reach. Bed in lowest position. Side rails up x3.
[2019-06-27 17:47] LABS: BASO # 0.1 (0.0-0.2); BASO % 0.6 % (0.0-2.0); EOS # 0.1 (0.0-0.7); EOS % 1.3 % (0-4.0); GRAN # 5.2 (1.4-6.5); GRAN % 65.8 % (42.2-75.2); LYMPH # 1.9 (1.2-3.4); LYMPH % 23.3 % (20.0-51.0); MEAN CELL VOLUME 88 fl (80.0-100.0); MEAN CORPUSCULAR HGB CONC 36 g/dl (33.0-37.0); MEAN PLATELET VOLUME 9.1 fl (7.4-10.4); MONO # 0.7 (0.1-0.6); MONO % 8.5 % (1.7-9.3); PLATELET COUNT 254 K/mm3 (130-400); RED BLOOD COUNT 3.11 M/mm3 (4.10-5.30); REDCELL DISTRIBUTION WIDTH-CV 11.8 % (11.5-14.5)
[2019-06-27 17:51] LABS: HEMATOCRIT 27.3 % (37.0-47.0); HEMOGLOBIN 9.9 g/dl (12.5-16.0); MEAN CORPUSCULAR HEMOGLOBIN 32 pg (27.0-31.0)
[2019-06-27 18:03] LABS: ALBUMIN 4.2 gm/dL (3.5-5.0); BILIRUBIN,TOTAL 0.4 mg/dL (0.0-1.0); CALCIUM 9.1 mg/dL (8.4-10.2); CREATININE, serum 1.22 (0.52-1.25); POTASSIUM 4.4 mmol/L (3.4-5.0); TOTAL PROTEIN 6.8 gm/dL (6.4-8.2)
[2019-06-27 18:40] LABS: COLLECTION METHOD CLEAN CATCH
--- NOTE | 2019-06-27 18:43 | NUR ---
JAQUELINE Alejandro notified of patients critical sodium and chloride level. No orders received at this time.
[2019-06-27 18:47] LABS: PH 5 (5-8); SQUAMOUS EPITHELIAL None Seen /hpf; URINE APPEARANCE Clear; URINE BACTERIA None Seen /hpf; URINE BILIRUBIN Negative (NEGATIVE); URINE BLOOD Negative (NEGATIVE); URINE COLOR Straw; URINE GLUCOSE Negative (NEGATIVE); URINE KETONE Negative (NEGATIVE); URINE LEUKOCYTE ESTERASE Negative (NEGATIVE); URINE NITRATE Negative (NEGATIVE); URINE PROTEIN(semi-quant) Negative (NEGATIVE); URINE RBC 0-2 /hpf; URINE UROBILINOGEN Negative (NEGATIVE)
--- NOTE | 2019-06-27 21:38 | NUR ---
PT RESTING IN BED APPEARS COMFORTABLE AND DENIES PAIN, VSS AT THIS TIME. PT NOTED TO HAVE COLOSTOMY IN PLACE. A/O X3, LUNGS CLEARS ON RA, PULSES PALPABLE, 1 PERSON ASSIST TO GET UP TO BEDSIDE COMMODE. WILL CONTINUE TO MONITOR AND UPDATE PROVIDERS NEEDED.
[2019-06-27 21:52] LABS: CALCIUM 8.7 mg/dL (8.4-10.2); CREATININE, serum 1.09 (0.52-1.25); POTASSIUM 4.1 mmol/L (3.4-5.0)
[2019-06-28] VITALS (53 sets, daily range): BP systolic 117–162; BP diastolic 60–77; PULSE 50–69; TEMP 97.6–98.2; O2SAT 94–100
[2019-06-28 01:30] LABS: CALCIUM 8.5 mg/dL (8.4-10.2); CREATININE, serum 1.03 (0.52-1.25); POTASSIUM 4.1 mmol/L (3.4-5.0)
[2019-06-28 05:08] LABS: BASO # 0.1 (0.0-0.2); BASO % 0.9 % (0.0-2.0); EOS # 0.2 (0.0-0.7); EOS % 2.3 % (0-4.0); GRAN # 3.6 (1.4-6.5); GRAN % 51.1 % (42.2-75.2); LYMPH # 2.6 (1.2-3.4); LYMPH % 37.3 % (20.0-51.0); MEAN CELL VOLUME 90 fl (80.0-100.0); MEAN CORPUSCULAR HGB CONC 36 g/dl (33.0-37.0); MEAN PLATELET VOLUME 9.1 fl (7.4-10.4); MONO # 0.6 (0.1-0.6); MONO % 8.1 % (1.7-9.3); PLATELET COUNT 246 K/mm3 (130-400); RED BLOOD COUNT 3.05 M/mm3 (4.10-5.30); REDCELL DISTRIBUTION WIDTH-CV 11.9 % (11.5-14.5)
[2019-06-28 05:09] LABS: HEMATOCRIT 27.3 % (37.0-47.0); HEMOGLOBIN 9.7 g/dl (12.5-16.0); MEAN CORPUSCULAR HEMOGLOBIN 32 pg (27.0-31.0)
[2019-06-28 05:19] LABS: CALCIUM 8.7 mg/dL (8.4-10.2); CREATININE, serum 1.04 (0.52-1.25); POTASSIUM 4.1 mmol/L (3.4-5.0)
--- NOTE | 2019-06-28 07:36 | NUR ---
REPORT GIVEN TO AVERY MONTANEZ
--- NOTE | 2019-06-28 08:30 | NUR ---
PT A&O X4. STANDY BY ASSIST TO USE COMMODE. PT DENIES PAIN. COLOSTOMY BAG EMPTIED THIS AM - FULL AND LIQUID 1030: COLOSTOMY BAG EMPTIED - FULL AND LIQUID.
[2019-06-28 10:36] LABS: CALCIUM 8.7 mg/dL (8.4-10.2); CREATININE, serum 0.99 (0.52-1.25); POTASSIUM 3.9 mmol/L (3.4-5.0)
[2019-06-28 15:49] LABS: CALCIUM 8.4 mg/dL (8.4-10.2); CREATININE, serum 1.12 (0.52-1.25); POTASSIUM 4.4 mmol/L (3.4-5.0)
--- NOTE | 2019-06-28 20:30 | NUR ---
PT COMPLAINS OF NAUSEA, PALE LOOKING, DIAPHORETIC AND BP AT 60'S. REASSESS 5 MINS AFTER, BP AT 80'S. PRN ZOFRAN GIVEN AND PT'S ROOM TEMPERATURE ADJUSTED TO MAKE IT COOLER. PT DENIES ANY PAIN OR DIZZINESS, SITTING AT THE EDGE OF BED. PT'S BS CHECKED AND WAS 180 MG/DL. PT WAS RE-CHECKED AFTER 15 MINS AND BP AT 117/71, NOT PALE-LOOKING ANYMORE AND NOT DIAPORETIC WELL. PT STATES SHE FEELS BETTER. WILL CONTINUE TO MONITOR.
[2019-06-28 21:33] LABS: CALCIUM 8.6 mg/dL (8.4-10.2); CREATININE, serum 1.35 (0.52-1.25); POTASSIUM 4.4 mmol/L (3.4-5.0)
--- NOTE | 2019-06-28 22:37 | NUR ---
PT RESTING IN BED SLEEPING, APPEARS TO BE COMFORTABLE AND NO SIGNS OF DISTRESS NOTED. VSS AT THIS TIME. WILL CONTINUE TO MONITOR.
[2019-06-29] VITALS (464 sets, daily range): BP systolic 130–184; BP diastolic 55–87; PULSE 60–72; TEMP 97.4–98.5; O2SAT 91–100
[2019-06-29 04:45] LABS: BASO % 0.4 % (0.0-2.0); EOS % 0.4 % (0-4.0); GRAN # 6.8 (1.4-6.5); LYMPH % 11.9 % (20.0-51.0); MEAN CELL VOLUME 91 fl (80.0-100.0); MEAN CORPUSCULAR HEMOGLOBIN 32 pg (27.0-31.0); MEAN CORPUSCULAR HGB CONC 35 g/dl (33.0-37.0); MEAN PLATELET VOLUME 9.1 fl (7.4-10.4); MONO # 0.5 (0.1-0.6); MONO % 6.1 % (1.7-9.3); PLATELET COUNT 265 K/mm3 (130-400); RED BLOOD COUNT 3.14 M/mm3 (4.10-5.30); REDCELL DISTRIBUTION WIDTH-CV 12.3 % (11.5-14.5)
[2019-06-29 04:48] LABS: HEMATOCRIT 28.6 % (37.0-47.0)
[2019-06-29 05:05] LABS: CALCIUM 8.8 mg/dL (8.4-10.2); CREATININE, serum 1.29 (0.52-1.25); MAGNESIUM 1.6 mg/dL (1.6-2.3); POTASSIUM 4.3 mmol/L (3.4-5.0)
[2019-06-29 09:54] LABS: CALCIUM 8.7 mg/dL (8.4-10.2); CREATININE, serum 1.24 (0.52-1.25); POTASSIUM 4.5 mmol/L (3.4-5.0)
--- NOTE | 2019-06-29 12:00 | NUR ---
Pt was nauseated this am and vomited around 0700. Pt am meds held until nausea passed. Pt was able to eat a few spoonfuls of applesauce, but has no appetite currently. Pt continues to have stool output at colostomy. Pt denies pain.
--- NOTE | 2019-06-29 12:35 | NUR ---
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 Patient resides in [facility] with but her DTR and Son-Law are support in home. DTR Codie Perez and Dr. Servando Perez. Assess: Patient reports that she sometimes drives but her DTR will transport her home. Patient reports he cell number as and her home number as . Patient declined [facility] and stated she has a walker but does not use it. Patient feeling tired, no response on RX and PCP. Action: Will need to follow-up for additional information.
--- NOTE | 2019-06-29 16:10 | NUR ---
REPORT GIVEN TO AVERY RANDLE. PT GOING TO MEDICAL FLOOR RM 352 VIA .
--- NOTE | 2019-06-29 17:00 | NUR ---
PT TAKEN TO MEDICAL FLOOR RM 352 VIA WC. PT BELONGINGS IN ROOM. PT CHART IN RACK AT MEDICAL NURSES STATION. AVERY RANDLE AWARE PT IS IN ROOM.
--- NOTE | 2019-06-29 17:15 | NUR ---
Patient arrived to room 352 from ICU around this time, she is alert/oriented, deines pain or discomfort, she has ordered breakfast, IVF infusing, denies other needs at this time
[2019-06-29 19:53] LABS: CALCIUM 8.9 mg/dL (8.4-10.2); CREATININE, serum 1.13 (0.52-1.25); POTASSIUM 3.8 mmol/L (3.4-5.0)
--- NOTE | 2019-06-29 21:40 | NUR ---
PT RESTING IN BED A+OX4. WITH FAMILY AT BEDSIDE. REPORTS NO PAIN. NO SOA. LUNGS CLEAR X4. BOWEL SOUNDS HEARD THROUGHOUT ABD. ABD SOFT. OSTOMY EMTIED THIS TIME. PEDAL AND RADIAL PULSES PALPATED. HEART RRR. TELE ON. IV FLUSHES WELL, NO REDNESS, NO SWELLING. NO NEEDS AT THIS TIME. CALL LIGHT IN REACH
[2019-06-30 03:58] VITALS: BP 144/59; PULSE 64; TEMP 97.9
--- NOTE | 2019-06-30 04:16 | NUR ---
PT IV INFULTRATED WITH NS RUNNING. RIGHT ARM IS SLIGHTLY SWOLLEN AT SITE. DC IV, AVERY BENJAMIN STARTED NEW 22G IV IN THE RIGHT UPPER ARM/AXILARY SITE. FLUSHES WELL, NO REDNESS NO SWELLING. IV FLUIDS RUNNING AT ORDERED RATE. NO NEEDS AT THIS TIME. CALL LIGHT IN REACH
[2019-06-30 06:53] LABS: BASO % 0.4 % (0.0-2.0); EOS # 0.2 (0.0-0.7); EOS % 2.4 % (0-4.0); GRAN # 3.9 (1.4-6.5); GRAN % 58.1 % (42.2-75.2); LYMPH % 29.4 % (20.0-51.0); MEAN CELL VOLUME 92 fl (80.0-100.0); MEAN CORPUSCULAR HGB CONC 35 g/dl (33.0-37.0); MEAN PLATELET VOLUME 9.7 fl (7.4-10.4); MONO # 0.6 (0.1-0.6); MONO % 9.3 % (1.7-9.3); PLATELET COUNT 267 K/mm3 (130-400); RED BLOOD COUNT 3.11 M/mm3 (4.10-5.30); REDCELL DISTRIBUTION WIDTH-CV 12.8 % (11.5-14.5)
[2019-06-30 06:54] LABS: HEMATOCRIT 28.7 % (37.0-47.0); HEMOGLOBIN 9.9 g/dl (12.5-16.0); MEAN CORPUSCULAR HEMOGLOBIN 32 pg (27.0-31.0)
--- NOTE | 2019-06-30 07:00 | NUR ---
Report received from AVERY Noriega. PT in bed resting, denies needs, will continue to monitor.
[2019-06-30 07:15] LABS: CALCIUM 9.4 mg/dL (8.4-10.2); CREATININE, serum 1.11 (0.52-1.25); POTASSIUM 4.4 mmol/L (3.4-5.0)
--- NOTE | 2019-06-30 07:37 | NUR ---
pt had an uneventful night. NA 130. reported leg cramps but denied need for intervention. iv started in the right upper arm, flushes well, no redness, no swelling. pt reports no needs at this time. call light in reach. report given to marilyn ortega
[2019-06-30 08:42] VITALS: BP 142/61; PULSE 64; TEMP 97.8
--- NOTE | 2019-06-30 10:00 | NUR ---
Assessment charted. Discussed todays labs, discussed family request for MRI of head d/t shakiness as scheduled OP for tomorrow. Denies pain. Colostomy output is watery and green, pt changed wafer today independently. Tolerating PO well. IVF to SHAUNA. Denies other needs, will continue to monitor.
[2019-06-30 12:24] VITALS: BP 169/68; PULSE 68; TEMP 97.7
--- NOTE | 2019-06-30 12:38 | NUR ---
Initial visit; Patient thanked Pathological Technician for looking in on her and offering God's blessings and prayer.
--- NOTE | 2019-06-30 16:35 | NUR ---
The patient is to discharge back home today, 06/30. Transportation to be provided by her daughter. The patient had no questions or concerns for discharge. SW presented and explained the IM form to the patient. The patient verbalized understanding, signed, and she was provided a copy. No additional needs at this time.
--- NOTE | 2019-06-30 17:00 | NUR ---
Discharge teachign completed at this time, INT d/c'd, tip intact. Reviewed discharge packet, discussed medications changes, f/u appointments, answered all questions. Pt left with all belongings, escorted out by myself via w/c. Family to drive pt home, criteria met.
== END 2019-06-30 17:00 | disposition home or self-care (01) | DRG 641 ==
LOC: ICU 15:53 → MEDICAL 16:46 → ICU 16:46 → MEDICAL 06-29 16:58 → ICU 06-29 16:58 → MEDICAL 06-29 16:58
PROVIDERS: Internal Medicine; Nurse Practitioner Family; ADMIT Hospitalist
DX: E87.1 Hypo-osmolality and hyponatremia (principal); C92.10 Chronic myeloid leukemia, BCR/ABL-positive, not having achieved remission; E11.9 Type 2 diabetes mellitus without complications; I10 Essential (primary) hypertension; E78.5 Hyperlipidemia, unspecified; D50.9 Iron deficiency anemia, unspecified; E86.1 Hypovolemia; E87.8 Other disorders of electrolyte and fluid balance, not elsewhere classified; Z93.3 Colostomy status; Z85.528 Personal history of other malignant neoplasm of kidney; Z85.038 Personal history of other malignant neoplasm of large intestine; Z90.710 Acquired absence of both cervix and uterus; Z88.0 Allergy status to penicillin
CPT/HCPCS: OP; 99223-AI; 99231-AI; 99232-AI; 99239; J1644; J1815; J2270; J2405; J7030

== ENCOUNTER → 2019-07-01 | Outpatient (CLI) | payer MEDICARE, BC ==
[~2019-07-01] MED LIST changes: +ASPIRIN E.C. 8181 MG PO; +FERRO-TIME325 MG PO; +MASON NATURAL2000 IU PO; +TOPROL XL 50MG50 MG PO; +VIT B12 PO
== END ==
LOC: COL.RAD 13:59
DX: R27.0 Ataxia, unspecified (principal)
CPT/HCPCS: A9585

== ENCOUNTER → 2020-07-07 | Outpatient (CLI) | payer MEDICARE, BC | LOC: MC.RAD 11:07 | DX: Z12.31 Encounter for screening mammogram for malignant neoplasm of breast (principal) ==

== ENCOUNTER 2021-02-25 11:22 | Emergency (ER) | payer MEDICARE, BC ==
[~2021-02-25] VITALS: Ht 165.1 cm; Wt 81.4 kg
[2021-02-25 11:36] VITALS: TEMP 98.9
[2021-02-25 12:24] LABS: BASO # 0.1 (0.0-0.2); BASO % 0.5 % (0.0-2.0); EOS # 0.1 (0.0-0.7); EOS % 0.5 % (0-4.0); GRAN # 12.8 (1.4-6.5); GRAN % 86.3 % (42.2-75.2); HEMOGLOBIN 12.9 g/dl (12.5-16.0); LYMPH # 1.3 (1.2-3.4); LYMPH % 8.8 % (20.0-51.0); MEAN CELL VOLUME 100 fl (80.0-100.0); MEAN CORPUSCULAR HEMOGLOBIN 33 pg (27.0-31.0); MEAN CORPUSCULAR HGB CONC 33 g/dl (33.0-37.0); MONO # 0.5 (0.1-0.6); MONO % 3.4 % (1.7-9.3); PLATELET COUNT 264 K/mm3 (130-400); RED BLOOD COUNT 3.92 M/mm3 (4.10-5.30); REDCELL DISTRIBUTION WIDTH-CV 13.5 % (11.5-14.5)
[2021-02-25 12:51] LABS: ALBUMIN 4.8 gm/dL (3.5-5.0); BILIRUBIN,TOTAL 0.3 mg/dL (0.0-1.0); CALCIUM 9.6 mg/dL (8.4-10.2); CREATININE, serum 1.29 (0.52-1.25); POTASSIUM 4.8 mmol/L (3.4-5.0); TOTAL PROTEIN 8.1 gm/dL (6.4-8.2)
[2021-02-25 14:46] VITALS: BP 172/89; PULSE 67
== END 2021-02-25 14:54 | disposition home or self-care (01) ==
LOC: COL.ER 11:22
PROVIDERS: Emergency Medicine
DX: K43.5 Parastomal hernia without obstruction or gangrene (principal); Z90.710 Acquired absence of both cervix and uterus; Z88.0 Allergy status to penicillin; Z79.82 Long term (current) use of aspirin; Z79.84 Long term (current) use of oral hypoglycemic drugs
CPT/HCPCS: J2405; J7030; Q9967

== ENCOUNTER → 2021-08-11 | Outpatient (CLI) | payer MEDICARE, BC | LOC: MC.RAD 11:15 | DX: Z12.31 Encounter for screening mammogram for malignant neoplasm of breast (principal) ==

== ENCOUNTER → 2022-08-29 | Outpatient (CLI) | payer MEDICARE, BC | LOC: MC.RAD 09:02 | DX: Z12.31 Encounter for screening mammogram for malignant neoplasm of breast (principal) ==

== ENCOUNTER 2024-07-01 14:18 | Day surgery (SDC) | payer MEDICARE, BC ==
[~2024-07-01] VITALS: Ht 165.1 cm; Wt 79.2 kg
[2024-07-01] VITALS (9 sets, daily range): BP systolic 124–185; BP diastolic 49–83; PULSE 57–74; TEMP 97–97.9
[~2024-07-01 14:18] MED LIST changes: +AIRBORNE ELDER1 EACH PO; +ALDACTONE 25MG25 M1 PO; +AMARYL1 MG PO; +LEXAPRO 5MG5 MG PO; +NS 1,000 ML IV SCH; +ZYLOPRIM 100MG100 MG PO
[2024-07-01] MEDS ORDERED: fentaNYL 50 MCG/ML 1 ML SYRINGE/VIAL [PACU/SDC ONLY] IV PRN (15:45)
[2024-07-01] MEDS ORDERED: Meperidine 50 MG/ML 1 ML VIAL IV PRN (15:45)
[2024-07-01] MEDS ORDERED: HYDROmorphone 1 MG/1 ML SYRINGE [PACU/SDC ONLY] IV PRN (15:45)
[2024-07-01] MEDS ORDERED: hydrALAZINE 20 MG/ML 1 ML VIAL IV PRN (15:45)
[2024-07-01] MEDS ORDERED: droPERidol 2.5 MG/ML 2 ML VIAL IV PRN (15:45)
[2024-07-01] MEDS ORDERED: COREG 25MG25 MG/TAB PO (15:47)
[2024-07-01] MEDS ORDERED: NATURAL IRON65 MG PO (15:49)
[2024-07-01] MEDS ORDERED: VITAMINC1000TA PO (15:49)
[2024-07-01] MEDS ORDERED: GLEEVEC100 MG PO (15:51)
[2024-07-01] MEDS ORDERED: NEURONTIN100 MG/CAP PO (15:51)
[2024-07-01] MEDS ORDERED: AMARYL 2MG T2 MG/TAB PO (15:52)
[2024-07-01] MEDS ORDERED: CRESTOR 10MG10 MG PO (15:54)
[2024-07-01] MEDS ORDERED: FARXIGA10 PO (15:55)
[2024-07-01] MEDS ORDERED: PERCOCET 325 MG1 TA2 PO (15:55)
[2024-07-01] MEDS ORDERED: Lidocaine PF 2% (20 MG/ML) 5 ML VIAL ONE (16:30)
[2024-07-01] MEDS ORDERED: Ondansetron 4 MG/2 ML VIAL ONE (16:30)
[2024-07-01] MEDS ORDERED: fentaNYL 50 MCG/ML 2 ML VIAL ONE (16:30)
[2024-07-01] MEDS ORDERED: ePHEDrine 50 MG/ML VIAL ONE (16:43)
[2024-07-01 17:49] LABS: BASO # 0.1 K/mm3 (0.0-0.2); BASO % 0.8 % (0.0-2.0); EOS # 0.3 K/mm3 (0.0-0.7); EOS % 3.6 % (0.0-4.0); GRAN # 4.2 K/mm3 (1.4-6.5); GRAN % 59.6 % (42.2-75.2); LYMPH # 1.8 K/mm3 (1.2-3.4); LYMPH % 25.1 % (20.0-51.0); MEAN CELL VOLUME 99 fl (80.0-100.0); MEAN CORPUSCULAR HGB CONC 33 g/dl (33.0-37.0); MEAN PLATELET VOLUME 9.7 fl (7.4-10.4); MONO # 0.8 K/mm3 (0.1-0.6); MONO % 10.5 % (1.7-9.3); PLATELET COUNT 259 K/mm3 (130-400); RED BLOOD COUNT 2.67 M/mm3 (4.10-5.30); REDCELL DISTRIBUTION WIDTH-CV 13.7 % (11.5-14.5)
[2024-07-01 17:50] LABS: HEMATOCRIT 26.5 % (37.0-47.0); HEMOGLOBIN 8.6 g/dl (12.5-16.0); MEAN CORPUSCULAR HEMOGLOBIN 32 pg (27-31)
[2024-07-01] MEDS ORDERED: Acetaminophen 325 MG TAB PO PRN (18:00)
[2024-07-01] MEDS ORDERED: Naloxone 0.4 MG/ML VIAL IV PRN (18:00)
[2024-07-01] MEDS ORDERED: Hyoscyamine 0.125 MG Sublingual TAB SL PRN (18:00)
[2024-07-01] MEDS ORDERED: Ondansetron 4 MG/2 ML VIAL IV PRN (18:00)
[2024-07-01 18:05] LABS: ALBUMIN 3.9 g/dL (3.4-4.8); ALKALINE PHOSPHATASE 131 U/L (40-150); ANION GAP 10 mmol/L (7-16); AST,SGOT 10 U/L (5-34); BILIRUBIN,TOTAL 0.3 mg/dL (0.2-1.2); BLOOD UREA NITROGEN 45 mg/dL (10-20); CALCIUM 9.9 mg/dL (8.4-10.2); CHLORIDE 109 mEq/L (98-107); CREATININE, serum 1.64 mg/dL (0.57-1.11); GLUCOSE 86 mg/dL (70-99); SODIUM 137 mEq/L (136-145); TOTAL PROTEIN 6.6 g/dl (6.2-8.1)
[2024-07-01 18:09] LABS: ALANINE AMINOTRANSFERASE < 6 U/L (0-55)
[2024-07-01] MEDS ORDERED: Iohexol 300 - 10 ML VIAL URETER-B ONE (18:17)
[2024-07-01] MEDS ORDERED: Lidocaine 2% (20 MG/ML) 20 ML UROJET UR ONE (18:27)
[2024-07-01 19:06] LABS: CALCIUM 9.5 mg/dL (8.4-10.2); CREATININE, serum 1.69 mg/dL (0.57-1.11)
[2024-07-01 19:07] LABS: POTASSIUM 5.8 mEq/L (3.5-4.5)
[2024-07-01] MEDS ORDERED: Furosemide 40 MG/4 ML VIAL IV ONE (19:30)
--- NOTE | 2024-07-01 22:50 | NUR ---
Patient arrived to the floor at 1999 from PACU with nurse Rafita, daughter at bedside, patient voided to the bathroom and denies any pain, no nausea or vomiting, A/O, IV lasix given as ordered, VSS, discharged instructions given, questions answered. Patient left the floor at 2247 with daughter and escorted by this nurse.
[2024-07-10] MEDS ORDERED: FENTANYL 12MCG TD (12:07)
[2024-07-10] MEDS ORDERED: COREG 3.123.125 MG/T PO (12:08)
[2024-07-10] MEDS ORDERED: CLARITIN 1010 MG/TAB PO (12:10)
[2024-07-10] MEDS ORDERED: B-121000 MCG PO (12:10)
[2024-07-10] MEDS ORDERED: ZYLOPRIM 100MG100 MG PO (12:14)
[2024-07-10] MEDS ORDERED: CRESTOR 10MG10 MG PO (12:16)
== END 2024-07-01 22:47 | disposition home or self-care (01) ==
LOC: SDCO 14:18 → SURG 18:10 → SDCO 22:47
PROVIDERS: Internal Medicine; Urology
DX: N13.30 Unspecified hydronephrosis (principal); N13.8 Other obstructive and reflux uropathy
CPT/HCPCS: OP; C1769; C2617; J0360; J0690; J1940; J2405; J2704; J3010; J7030; Q9967

== ENCOUNTER → 2024-07-10 | Outpatient (CLI) | payer MEDICARE ==
[2024-07-10] VITALS (9 sets, daily range): BP systolic 109–169; BP diastolic 59–79; PULSE 57–64; TEMP 97.8
[~2024-07-10] VITALS: Ht 165.1 cm; Wt 80.0 kg
[~2024-07-10] MED LIST changes: +B-121000 MCG PO; +CLARITIN 1010 MG/TAB PO; +COREG 25MG25 MG/TAB PO; +COREG 3.123.125 MG/T PO; +CRESTOR 10MG10 MG PO; +FARXIGA10 PO; +FENTANYL 12MCG TD; +NATURAL IRON65 MG PO; +NEURONTIN100 MG/CAP PO; -NS 1,000 ML IV SCH; +PERCOCET 325 MG1 TA2 PO; +VITAMINC1000TA PO
--- NOTE | 2024-07-10 12:45 | NUR ---
Pt to ct per wheelchair. Pt up and onto right side down. Monitors applied.
--- NOTE | 2024-07-10 13:00 | NUR ---
Specimens obtained by Dr Malcolm and placed in formalin. Specimen labeled.
== END ==
LOC: COL.RAD 11:45
DX: C79.51 Secondary malignant neoplasm of bone (principal); C80.1 Malignant (primary) neoplasm, unspecified
CPT/HCPCS: 32109